=== PATIENT | female | born 1970 | race Caucasian/White ===

== ENCOUNTER 2017-03-28 09:21 | Emergency (ER) | payer BC, OTHER ==
[~2017-03-28] VITALS: Ht 165.1 cm; Wt 80.7 kg
[~2017-03-28 09:21] MED LIST: LORT5TAB PO; Z.0.NO CURRENT MEDS
[2017-03-28 09:25] VITALS: BP 142/100; PULSE 82; RESP 16; TEMP 97.9; O2SAT 98
[2017-03-28] MEDS ORDERED: LISI-519 PO (09:32)
[2017-03-28] MEDS ORDERED: MONT4CHW2 CHEW (09:32)
[2017-03-28] MEDS ORDERED: PRIL10PO (09:32)
[2017-03-28] MEDS ORDERED: TRAM50TA PO (09:47)
--- NOTE | 2017-03-28 09:51 | PD ---
HPI Chief Complaint: Musculoskeletal Complaint Time Seen by Provider: 09:40 Travel History International Travel<30 days: No Contact w/Intl Traveler<30days: No Traveled to known affect area: No History of Present Illness HPI This patient complains of sciatica. She has pain in her right buttock that radiates down her leg. She's had it for one full month. No injury. She denies fever. She has not discussed with her primary physician. No alleviating factors. PFSH Past Medical History Diminished Hearing: No Hypertension: Yes Influenza Vaccination: No ?: Not : 2 Para: 2 Past Surgical History Surgical History: No Previous Surgery Hysterectomy: Yes Social History Alcohol Use: Yes (STS A COUPLE DRINKS PER WEEK) Tobacco Use: No Substance Use: No Allergies-Medications (Allergen,Severity, Reaction): Coded Allergies: No Known Allergies (Verified , 03/28/17) Reported Meds & Prescriptions Reported Meds & Active Scripts Active Reported Singulair (Montelukast Sodium) 4 Mg Chew 4 Mg CHEW HS Prilosec (Omeprazole Magnesium) 10 Mg Pow Lisinopril 5 Mg Tab 5 Mg PO DAILY Review of Systems General / Constitutional: No: Fever HENT: No: Headaches Cardiovascular: No: Chest Pain or Discomfort Respiratory: No: Cough Physical Exam Narrative GASTROINTESTINAL: Abdomen soft, non-tender, nondistended. Positive bowel sounds. No hepato-splenomegaly, or palpable masses. No guarding. SKIN: Focused skin assessment reveals no rash or ulcers. Skin is warm and dry. Palpation shows no induration or nodules. NEUROLOGICAL: Awake and alert. Pupils are equal round and reactive. Motor and sensory grossly within normal limits. Five out of 5 muscle strength in all muscle groups. Normal speech. Positive straight leg raise in the right side Data Data Last Documented VS Vital Signs Date Time Temp Pulse Resp B/P Pulse Ox O2 Delivery O2 Flow Rate FiO2 03/28/17 09:25 97.9 82 16 142/100 98 MDM Medical Decision Making Medical Screen Exam Complete: Yes Emergency Medical Condition: Yes Medical Record Reviewed: Yes Differential Diagnosis Sciatica, lumbar strain, pyelonephritis Narrative Course I have reviewed the patient's electronic medical record. Patient is neurologically intact No objective findings Her presentation is consistent with sciatica She should contact her primary physician for follow-up They can discuss outpatient MRI I wrote some tramadol for symptom relief Diagnosis Primary Impression: Sciatic nerve pain Qualified Code: M54.31 - Sciatic nerve pain, right Additional Instructions: The patient was advised to follow up with their physician and return if they worsen. The patient was warned about potential sedation for the medications they will receive on prescription. Med/Other Pt SpecificInfo: Prescription(s) given Scripts Tramadol 50 Mg Tab50 Mg PO Q6H PRN (PAIN) #25 TAB Ref 0 Prov:Guero Taylor MD 03/28/17 Disposition: 01 DISCHARGE HOME Condition: Stable Guero Taylor MD Mar 28, 2017 09:51
== END 2017-03-28 10:14 | disposition home or self-care (01) ==
LOC: PHEFT 09:21
DX: M54.31 Sciatica, right side (principal); I10 Essential (primary) hypertension
CPT/HCPCS: 99283

== ENCOUNTER 2017-10-23 10:48 | Day surgery (SDC) | payer OTHER ==
[~2017-10-23] VITALS: Ht 165.1 cm; Wt 83.0 kg
[~2017-10-23 10:48] MED LIST changes: +LISI-519 PO; -LORT5TAB PO; +MONT4CHW2 CHEW; +OMEP10SU; +TRAM50TA PO; -Z.0.NO CURRENT MEDS
[2017-10-23 10:49] VITALS: BP 197/110; PULSE 86; RESP 20; TEMP 98.3; O2SAT 100
--- NOTE | 2017-10-23 11:12 | PD ---
Physical Exam Time Seen by Provider: 11:09 Narrative 47yo F c/o vomiting since last night. Feels like something stuck and every time she eats or drinks she vomits. Denies fevers. HX GERD and HTN. Patient seen in triage. VS reviewed. Awaiting bed placement. See next providers note for final patient disposition. Data Data Last Documented VS Vital Signs Date Time Temp Pulse Resp B/P (MAP) Pulse Ox O2 Delivery O2 Flow Rate FiO2 10/23/17 10:49 98.3 86 20 197/110 (139) 100 Room Air MDM Supervised Visit with FIDEL: Hiral Bautista Oct 23, 2017 11:12
[2017-10-23] MEDS ORDERED: ESMOLOL HCL 100 MG/10 ML VIAL IV ONE (12:00)
[2017-10-23] MEDS ORDERED: SUCCINYLCHOLINE CHLORIDE 200 MG/10 ML VIAL IV ONE (12:00)
[2017-10-23] MEDS ORDERED: SODIUM CHLOR 0.9% 1000 ML INJ 1,000 ML IV ONE (12:00)
[2017-10-23] MEDS ORDERED: ONDANSETRON HCL 4 MG/2 ML VIAL IV PUSH ONE ×2 (12:00→14:00)
[2017-10-23] MEDS ORDERED: LIDOCAINE HCL 1% PF 5 ML SYRINGE OTHER ONE (12:00)
[2017-10-23] MEDS ORDERED: PROPOFOL 200 MG/20 ML AMP IV ONE (12:00)
[2017-10-23] MEDS ORDERED: PANT40TA3 PO (13:34)
--- NOTE | 2017-10-23 13:48 | PD ---
HPI Chief Complaint: GI Complaint Time Seen by Provider: 13:41 Travel History International Travel<30 days: No Contact w/Intl Traveler<30days: No Traveled to known affect area: No [facility] Past Medical History Diminished Hearing: No Hypertension: Yes ?: Not : 2 Para: 2 Past Surgical History Hysterectomy: Yes (PARTIAL) Social History Alcohol Use: Yes (STS A COUPLE DRINKS PER WEEK) Tobacco Use: No Substance Use: No Allergies-Medications (Allergen,Severity, Reaction): Coded Allergies: No Known Allergies (Verified Adverse Reaction, Unknown, 10/23/17) Reported Meds & Prescriptions Reported Meds & Active Scripts Active Reported Pantoprazole (Pantoprazole Sodium) 40 Mg Tab 40 Mg PO DAILY Singulair (Montelukast Sodium) 4 Mg Chew 4 Mg CHEW HS Lisinopril 5 Mg Tab 5 Mg PO DAILY Data Data Last Documented VS Vital Signs Date Time Temp Pulse Resp B/P (MAP) Pulse Ox O2 Delivery O2 Flow Rate FiO2 10/23/17 14:05 100 10/23/17 10:49 98.3 86 20 Room Air Orders Orders Basic Metabolic Panel (Bmp) (10/23/17 13:47) Complete Blood Count With Diff (10/23/17 13:47) Iv Access Insert/Monitor (10/23/17 13:47) Ecg Monitoring (10/23/17 13:47) Oximetry (10/23/17 13:47) Sodium Chloride 0.9% Flush (Ns Flush) (10/23/17 14:00) Glucagon Inj (Glucagon Inj) (10/23/17 14:00) Ondansetron Inj (Zofran Inj) (10/23/17 14:00) Glucagon (10/23/17 14:30) Glucagon Inj (Glucagon Inj) (10/23/17 14:30) Consent (10/23/17 15:31) Consult Gastroenterology (10/23/17 ) NPO (10/23/17 15:37) Sodium Chlor 0.9% 1000 Ml Inj (Ns 1000 M (10/23/17 16:00) (Hub Use Only)Inp Phy Cons/Ref (10/23/17 ) Panendo (10/23/17 ) Labs Laboratory Tests Test 10/23/17 14:00 White Blood Count 7.6 TH/MM3 Red Blood Count 4.28 MIL/MM3 Hemoglobin 14.7 GM/DL Hematocrit 42.3 % Mean Corpuscular Volume 98.7 FL Mean Corpuscular Hemoglobin 34.2 PG Mean Corpuscular Hemoglobin Concent 34.7 % Red Cell Distribution Width 14.4 % Platelet Count 204 TH/MM3 Mean Platelet Volume 8.8 FL Neutrophils (%) (Auto) 63.9 % Lymphocytes (%) (Auto) 28.8 % Monocytes (%) (Auto) 5.3 % Eosinophils (%) (Auto) 1.4 % Basophils (%) (Auto) 0.6 % Neutrophils # (Auto) 4.9 TH/MM3 Lymphocytes # (Auto) 2.2 TH/MM3 Monocytes # (Auto) 0.4 TH/MM3 Eosinophils # (Auto) 0.1 TH/MM3 Basophils # (Auto) 0.0 TH/MM3 CBC Comment DIFF FINAL Differential Comment Blood Urea Nitrogen 21 MG/DL Creatinine 0.77 MG/DL Random Glucose 97 MG/DL Calcium Level 8.8 MG/DL Sodium Level 141 MEQ/L Potassium Level 3.5 MEQ/L Chloride Level 109 MEQ/L Carbon Dioxide Level 23.4 MEQ/L Anion Gap 9 MEQ/L Estimat Glomerular Filtration Rate 80 ML/MIN MDM Medical Decision Making Medical Screen Exam Complete: Yes Emergency Medical Condition: Yes Narrative Course Patient unresponsive to two doses of glucagon, D/W Dr. Rangel, will be for endoscopy late this evening 11/11 endoscopy schedule. Diagnosis Primary Impression: Esophageal obstruction due to food impaction Peterson Shaw MD Oct 23, 2017 13:48
[2017-10-23] MEDS ORDERED: GLUCAGON 1 MG/ML VIAL IV PUSH ONE ×2 (14:00→14:30)
[2017-10-23] MEDS ORDERED: SODIUM CHLORIDE 0.9% FLUSH 10 ML FLUSH IV FLUSH PRN (14:00)
[2017-10-23 14:05] VITALS: O2SAT 100
[2017-10-23 14:22] LABS: AUTOMATED NEUTROPHIL # 4.9 TH/MM3 (1.8-7.7); BASOPHIL % 0.6 % (0.0-2.0); EOSINOPHIL # 0.1 TH/MM3 (0-0.4); EOSINOPHIL % 1.4 % (0.0-4.0); HEMATOCRIT 42.3 % (35.0-46.0); HEMOGLOBIN 14.7 GM/DL (11.6-15.3); LYMPH % 28.8 % (9.0-44.0); LYMPHOCYTE # 2.2 TH/MM3 (1.0-4.8); MEAN CELL VOLUME 98.7 FL (80.0-100.0); MEAN CORPUSCULAR HEMOGLOBIN 34.2 PG (27.0-34.0); MEAN CORPUSCULAR HGB CONC 34.7 % (32.0-36.0); MEAN PLATELET VOLUME 8.8 FL (7.0-11.0); MONO % 5.3 % (0.0-8.0); MONOCYTE # 0.4 TH/MM3 (0-0.9); NEUT % 63.9 % (16.0-70.0); PLATELET COUNT 204 TH/MM3 (150-450); RED BLOOD COUNT 4.28 MIL/MM3 (4.00-5.30); RED CELL DISTRIBUTION WIDTH 14.4 % (11.6-17.2); WHITE BLOOD COUNT 7.6 TH/MM3 (4.0-11.0)
[2017-10-23 14:30] LABS: BICARBONATE 23.4 MEQ/L (21.0-32.0); CALCIUM 8.8 MG/DL (8.5-10.1); CREATININE 0.77 MG/DL (0.50-1.00)
[2017-10-23] MEDS ORDERED: SODIUM CHLOR 0.9% 1000 ML INJ 1,000 ML IV SCH (16:00)
--- NOTE | 2017-10-23 17:53 | MB ---
cc: JACEY CHANG M.D. DATE OF CONSULTATION: 10/23/2017. REASON FOR CONSULTATION: Food bolus impaction in the esophagus. DATE OF : 1970. REFERRING PHYSICIAN: Dr. Winkler . HISTORY OF PRESENT ILLNESS: Ms. Lindsey is a very pleasant 47-year-old lady with no major medical problems. She came to the emergency room with complaints of being unable to swallow her saliva and recurrent nausea and vomiting after eating. Apparently she was eating steak while watching football and she got a piece of beef steak stuck in her esophagus. Since then, she has been feeling discomfort in the retrosternal area. The saliva is coming up in her throat and she is unable to tolerate any liquids. She was given Glucagon in the emergency room with no improvement. She denies any previous episodes of similar symptoms. She denies any nausea or vomiting or abdominal pain, constipation, diarrhea. She does have a history of GERD and is taking proton pump inhibitors for it. She has never had an endoscopy or colonoscopy. PAST MEDICAL HISTORY: 1. Reflux. 2. High blood pressure. PAST SURGICAL HISTORY: She has a history of section and a partial hysterectomy in the past. ALLERGIES: No known allergies. MEDICATIONS: She takes omte-yjv-dosugil proton pump inhibitor. SOCIAL HISTORY: Denies any smoking. She drinks occasionally. No drug use. REVIEW OF SYSTEMS: CONSTITUTIONAL: On review of systems she denies any fever or chills, weight loss or weight gain. HEAD, EYES, EARS, NOSE, THROAT: No alteration in baseline hearing or visual acuity. PULMONARY: Denies any chest pain or shortness of breath. GASTROINTESTINAL: As above. GENITOURINARY: Denies any dysuria or hematuria. HEMATOLOGICAL: No history of anemia or bleeding disorder. SKIN: No alteration in baseline skin lesions. NEUROLOGICAL: No history of TIA or CVA kind of symptoms. PHYSICAL EXAMINATION: GENERAL: On clinical exam, she is sitting comfortably in bed in no acute distress. VITAL SIGNS: Temperature 98.3, pulse 86, respirations 20, blood pressure 197/110. HEAD, EYES, EARS, NOSE, THROAT: Pupils equal, round and reactive to light and accommodation. NECK: No jugular venous distention. No lymphadenopathy. CHEST: Clear to auscultation and palpation. CARDIOVASCULAR: S1-S2 no murmur. ABDOMEN: Soft, obese, bowel sounds are present. ACCOUNTANT BOOKKEEPER: Awake, alert and oriented times three. No focal signs identified. LABORATORY STUDIES: Her BNP was 5. CBC was normal. IMPRESSION: Dysphagia secondary to esophageal foreign body and a history of reflux, possible esophageal stricture. RECOMMENDATIONS: 1. NPO. 2. Upper endoscopy with foreign body removal and dilatation will be scheduled. The risks and benefits were discussed with the patient and she is agreeing with it. At this time, the operating room schedule is backed up so we will wait patiently to do her procedure. She was informed, and she is agreeing with it. MD EVGENY PenaB/SEAMUS /4:55 PM /5:36 PM
--- NOTE | 2017-10-23 18:31 | PD ---
HPI Chief Complaint: GI Complaint Time Seen by Provider: 13:41 Travel History International Travel<30 days: No Contact w/Intl Traveler<30days: No Traveled to known affect area: No History of Present Illness HPI Patient is a 47-year-old female presents emergency department for evaluation of regurgitation and inability to tolerate her own secretions. Patient states that she ate steak last night and ever since then she has not been able to tolerate her own secretions no water. Patient states never happened to her before, she's never had any colonoscopy and endoscopy no abdominal pain. She states like everything is getting stuck rate between her breasts. No fevers no cough no congestion no shortness of breath. This symptoms are moderate, constant, context and associated signs symptoms as above. PFSH Past Medical History Diminished Hearing: No Hypertension: Yes ?: Not : 2 Para: 2 Past Surgical History Hysterectomy: Yes (PARTIAL) Social History Alcohol Use: Yes (STS A COUPLE DRINKS PER WEEK) Tobacco Use: No Substance Use: No Allergies-Medications (Allergen,Severity, Reaction): Coded Allergies: No Known Allergies (Verified Adverse Reaction, Unknown, 10/23/17) Reported Meds & Prescriptions Reported Meds & Active Scripts Active Reported Pantoprazole (Pantoprazole Sodium) 40 Mg Tab 40 Mg PO DAILY Singulair (Montelukast Sodium) 4 Mg Chew 4 Mg CHEW HS Lisinopril 5 Mg Tab 5 Mg PO DAILY Review of Systems Except as stated in HPI: all other systems reviewed are Neg Physical Exam Narrative GENERAL: Well-developed well-nourished no obvious distress, holding a bag full of her own secretions. SKIN: Focused skin assessment warm/dry. HEAD: Atraumatic. Normocephalic. EYES: Pupils equal and round. No scleral icterus. No injection or drainage. ENT: No nasal bleeding or discharge. Mucous membranes pink and moist. NECK: Trachea midline. No JVD. CARDIOVASCULAR: Regular rate and rhythm. No murmur appreciated. RESPIRATORY: No accessory muscle use. Clear to auscultation. Breath sounds equal bilaterally. GASTROINTESTINAL: Abdomen soft, non-tender, nondistended. Hepatic and splenic margins not palpable. MUSCULOSKELETAL: No obvious deformities. No clubbing. No cyanosis. No edema. NEUROLOGICAL: Awake and alert. No obvious cranial nerve deficits. Motor grossly within normal limits. Normal speech. PSYCHIATRIC: Appropriate mood and affect; insight and judgment normal. Data Data Last Documented VS Vital Signs Date Time Temp Pulse Resp B/P (MAP) Pulse Ox O2 Delivery O2 Flow Rate FiO2 10/23/17 14:05 100 10/23/17 10:49 98.3 86 20 Room Air Orders Orders Basic Metabolic Panel (Bmp) (10/23/17 13:47) Complete Blood Count With Diff (10/23/17 13:47) Iv Access Insert/Monitor (10/23/17 13:47) Ecg Monitoring (10/23/17 13:47) Oximetry (10/23/17 13:47) Sodium Chloride 0.9% Flush (Ns Flush) (10/23/17 14:00) Glucagon Inj (Glucagon Inj) (10/23/17 14:00) Ondansetron Inj (Zofran Inj) (10/23/17 14:00) Glucagon (10/23/17 14:30) Glucagon Inj (Glucagon Inj) (10/23/17 14:30) Consent (10/23/17 15:31) Consult Gastroenterology (10/23/17 ) NPO (10/23/17 15:37) Sodium Chlor 0.9% 1000 Ml Inj (Ns 1000 M (10/23/17 16:00) (Hub Use Only)Inp Phy Cons/Ref (10/23/17 ) Panendo (10/23/17 ) Labs Laboratory Tests Test 10/23/17 14:00 White Blood Count 7.6 TH/MM3 Red Blood Count 4.28 MIL/MM3 Hemoglobin 14.7 GM/DL Hematocrit 42.3 % Mean Corpuscular Volume 98.7 FL Mean Corpuscular Hemoglobin 34.2 PG Mean Corpuscular Hemoglobin Concent 34.7 % Red Cell Distribution Width 14.4 % Platelet Count 204 TH/MM3 Mean Platelet Volume 8.8 FL Neutrophils (%) (Auto) 63.9 % Lymphocytes (%) (Auto) 28.8 % Monocytes (%) (Auto) 5.3 % Eosinophils (%) (Auto) 1.4 % Basophils (%) (Auto) 0.6 % Neutrophils # (Auto) 4.9 TH/MM3 Lymphocytes # (Auto) 2.2 TH/MM3 Monocytes # (Auto) 0.4 TH/MM3 Eosinophils # (Auto) 0.1 TH/MM3 Basophils # (Auto) 0.0 TH/MM3 CBC Comment DIFF FINAL Differential Comment Blood Urea Nitrogen 21 MG/DL Creatinine 0.77 MG/DL Random Glucose 97 MG/DL Calcium Level 8.8 MG/DL Sodium Level 141 MEQ/L Potassium Level 3.5 MEQ/L Chloride Level 109 MEQ/L Carbon Dioxide Level 23.4 MEQ/L Anion Gap 9 MEQ/L Estimat Glomerular Filtration Rate 80 ML/MIN MDM Medical Decision Making Medical Screen Exam Complete: Yes Emergency Medical Condition: Yes Differential Diagnosis Food bolus impaction, Smith's esophagus, esophageal stricture. Narrative Course Patient roomed in emergency department, despite 2 doses of regular gone 1 mg IV the patient has not had significant relief of her symptoms. The patient is arranging for transportation home and has a friend on stay more to take her home. Discussed with Dr. payan to, she will be set up for endoscopy today, maybe late in the evening. We'll be holding in the emergency department until such time as she can go to endoscopy. Patient discussed about coming provider. Diagnosis Primary Impression: Esophageal obstruction due to food impaction Peterson Shaw MD Oct 23, 2017 18:31
--- NOTE | 2017-10-23 19:28 | PD.PROCEDR ---
GI Procedure PROCEDURE PERFORMED Upper endoscopy, foreign body removal, biopsy, cautery to stop bleeding at biopsy site, dilation of esophageal stricture INDICATION FOR PROCEDURE Dysphagia Foreign body impaction PROCEDURE: The procedure, risks and benefits were discussed with Ms. Lindsey and informed consent was obtained. Anesthesia sedated her with Diprivan. She was placed in the left lateral decubitus position. EGD: The Pentax videoscope was introduced through the oropharynx and advanced to midesophagus , there was large piece of meat stuck there , this was removed by pushing it into the stomach , then the scope was advanced to the second portion of the duodenum under direct visualization. The scope withdrawal back to the stomach Retroflexion was performed in the stomach. Biopsy from the antrum was done to rule out H. pylori, biopsy from the EG junction, there was some bleeding at the site more than usual so the area was cauterized at the site from the EG junction, dilation of esophageal stricture was guidewire was guided savory dilators 17 mm was done FINDINGS: Foreign body removal as above Esophageal stricture status post dilation with savory guidewire size 17 mm Esophagitis with irregular Z line possible short Smith biopsy from the EG junction Duodenitis, biopsy from the antrum to rule out H. pylori ESTIMATED BLOOD LOSS: 3 cc SPECIMENS REMOVED: GE junction and distal esophagus , antrum COMPLICATIONS: None PLAN: Chew food well Continue PPI Okay to discharge home from GI perspective Soft mechanical diet Return to clinic to follow up on the biopsy in 1-2 weeks Sienna Jiménez MD Oct 23, 2017 19:28
[2017-10-23] MEDS ORDERED: DO NOT ADM ANY ANTICOAGULANT DRUGS PRN (19:45)
[2017-10-23] MEDS ORDERED: LISINOPRIL 20 MG TAB PO ONE (19:45)
[2017-10-23 20:30] VITALS: BP 180/94; PULSE 87; RESP 20; TEMP 98.7; O2SAT 96
== END 2017-10-23 20:40 | disposition home or self-care (01) ==
LOC: NEPD 10:48 → HSDC 18:57
PROVIDERS: ATTEND Internal Medicine Gastroenterology
DX: T18.128A Food in esophagus causing other injury, initial encounter (principal); K20.9 Esophagitis, unspecified; K22.9 Disease of esophagus, unspecified; K29.80 Duodenitis without bleeding
CPT/HCPCS: 00731; 43239; 43247; 43270; 80048; 85025; 88305; C1769; J2405; J3010; 88312; J0330; J1610; J7030